=== PATIENT | female | born 1945 | race Caucasian/White ===

== ENCOUNTER → 2016-03-24 | Outpatient (CLI) | payer MEDICARE | LOC: PCVCCLINIC 13:00 | PROVIDERS: ATTEND Internal Medicine Cardiovascular Disease | DX: E78.00 Pure hypercholesterolemia, unspecified (principal); I34.0 Nonrheumatic mitral (valve) insufficiency; I34.1 Nonrheumatic mitral (valve) prolapse | CPT/HCPCS: 80061; 93005; G0463 ==

== ENCOUNTER → 2016-10-06 | Outpatient (CLI) | payer MEDICARE ==
--- NOTE | 2016-10-06 13:10 | PCVCIMAG ---
APPROVED REPORT Study performed: 10/06/2016 09:26:33 EXAM: Comprehensive 2D, Doppler, and color-flow Echocardiogram Patient Location: Echo lab Status: routine Other Information Study Quality: Adequate Indications Mitral Valve Disease Mitral Valve Prolapse 2D Dimensions LVEF(%): 54.26 (>50%) IVSd: 10.25 (7-11mm) LVDd: 39.28 mm PWd: 9.70 (7-11mm) LVDs: 28.42 (25-40mm) Left Atrium: 36.39 (27-40mm) Aortic Root: 31.48 mm LV Single Plane 4CH: 58.01 % LV Single Plane 2CH: 61.33 %Gerard's LVEF: 59.67 % Biplane EF: 60.2 % Volumes Left Atrial Volume (Systole) Single Plane 4CH: 39.18 mLSingle Plane 2CH: 49.79 mL LA ESV Index: 26.00 mL/m2 Aortic Valve AoV Peak Anshul.: 1.28 m/s AO Peak Gr.: 6.56 mmHgLVOT Max P.70 mmHg LVOT Max V: 1.08 m/s Mitral Valve E/A Ratio: 0.8 MV Decel. Time: 282.17 ms MV E Max Anshul.: 0.73 m/s MV A Anshul.: 0.89 m/s IVRT: 128.03 ms Pulmonary Valve PV Peak Anshul.: 0.71 m/sPV Peak Gr.: 2.04 mmHg Pulmonary Vein P Vein S: 0.47 m/sP Vein A: 0.38 m/s P Vein D: 0.57 m/sP Vein A Dur.: 145.3 msec P Vein S/D Ratio: 0.82 Tricuspid Valve TR Peak Anshul.: 2.28 m/s TR Peak Gr.: 20.85 mmHg Left Ventricle The left ventricle is normal size. There is normal LV segmental wall motion. There is normal left ventricular wall thickness. Left ventricular systolic function is normal. The left ventricular ejection fraction is within the normal range. LVEF is 60%. Grade I - abnormal relaxation pattern. Right Ventricle The right ventricle is normal size. The right ventricular systolic function is normal. Atria The left atrium size is normal. The right atrium size is normal. Aortic Valve The aortic valve is normal in structure. Trace regurgitation. There is no aortic valvular stenosis. Mitral Valve Moderate myxomatous mitral valve leaflets. Mild to moderate mitral regurgitation. No evidence of mitral valve stenosis. Moderate bi-leaflet prolapse. Tricuspid Valve The tricuspid valve is normal in structure. Trace to mild tricuspid regurgitation with PAP of 28 mmHg. Pulmonic Valve The pulmonary valve is normal in structure. Mild pulmonic regurgitation. Great Vessels The aortic root is normal in size. IVC is normal in size and collapses with >50% inspiration Pericardium There is no pericardial effusion. <Conclusion> The left ventricle is normal size. There is normal left ventricular wall thickness. LVEF is 60%. Grade I - abnormal relaxation pattern. The right ventricle is normal size. The left atrium size is normal. The aortic valve is normal in structure. Mild to moderate mitral regurgitation. Trace to mild tricuspid regurgitation with PAP of 28 mmHg. There is no pericardial effusion. Moderate myxomatous mitral valve leaflets.
== END | disposition home or self-care (01) ==
LOC: PCVCIMAG 09:35
PROVIDERS: ATTEND Internal Medicine Cardiovascular Disease
DX: I35.1 Nonrheumatic aortic (valve) insufficiency (principal); I34.0 Nonrheumatic mitral (valve) insufficiency; I07.1 Rheumatic tricuspid insufficiency; I37.1 Nonrheumatic pulmonary valve insufficiency; I10 Essential (primary) hypertension; I49.3 Ventricular premature depolarization; E78.00 Pure hypercholesterolemia, unspecified; Z88.0 Allergy status to penicillin; Z88.2 Allergy status to sulfonamides
CPT/HCPCS: 80061; 93005; 93306; G0463

== ENCOUNTER → 2017-11-03 | Outpatient (CLI) | payer MEDICARE ==
--- NOTE | 2017-11-03 17:01 | PCVCIMAG ---
APPROVED REPORT Study performed: 11/03/2017 10:56:12 EXAM: Comprehensive 2D, Doppler, and color-flow Echocardiogram Patient Location: Echo lab Status: routine BSA: 1.81 HR: 80 bpmBP: 100/80 mmHg Rhythm: NSR Other Information Study Quality: Good Risk Factors: Cardiac Risk Factors: Hyperlipidemia, HTN Indications Mitral Valve Prolapse. PVC's. Mitral Regurgitation. 2D Dimensions LVEF(%): 64.27 (>50%) IVSd: 9.04 (7-11mm)LVOT Diam: 19.43 (18-24mm) LVDd: 44.15 mm PWd: 8.57 (7-11mm)Ascending Ao: 34.13 (22-36mm) LVDs: 28.77 (25-40mm) Left Atrium: 32.35 (27-40mm) Aortic Root: 30.03 mm LV Single Plane 4CH: 61.88 % Gerard's LVEF: 64.27 % Volumes Left Atrial Volume (Systole) Single Plane 4CH: 37.45 mLSingle Plane 2CH: 27.77 mL LA ESV Index: 19.00 mL/m2 Aortic Valve AoV Peak Anshul.: 1.34 m/s AO Peak Gr.: 7.23 mmHgLVOT Max P.26 mmHg LVOT Max V: 1.15 m/s NIALL Vmax: 2.53 cm2 Mitral Valve E/A Ratio: 0.7 MV Decel. Time: 270.15 ms MV E Max Anshul.: 0.77 m/s MV A Anshul.: 1.14 m/s TDI E/Lateral E': 11.00E/Medial E': 12.83 Medial E' Anshul.: 0.06 m/s Lateral E' Anshul.: 0.07 m/s Pulmonary Valve PV Peak Gr.: 1.90 mmHg Pulmonary Vein P Vein S: 0.77 m/sP Vein A: 0.38 m/s P Vein D: 0.40 m/sP Vein A Dur.: 55.4 msec P Vein S/D Ratio: 1.92 Tricuspid Valve TR Peak Anshul.: 2.09 m/s TR Peak Gr.: 17.48 mmHg Left Ventricle The left ventricle is normal size. There is normal LV segmental wall motion. There is normal left ventricular wall thickness. Left ventricular systolic function is normal. The left ventricular ejection fraction is within the normal range. LVEF is 60-65%. Grade I - abnormal relaxation pattern. Right Ventricle The right ventricle is normal size. The right ventricular systolic function is normal. Atria The left atrium size is normal. The right atrium size is normal. Aortic Valve The aortic valve is normal in structure. No aortic regurgitation is present. There is no aortic valvular stenosis. Mitral Valve Moderate myxomatus leaflets. Bi-leaflet Prolapse. Mild to moderate mitral regurgitation. No evidence of mitral valve stenosis. Tricuspid Valve The tricuspid valve is normal in structure. Mild tricuspid regurgitation. Pulmonary artery pressure is 25mmhg. Pulmonic Valve The pulmonary valve is normal in structure. There is no pulmonic valvular regurgitation. Great Vessels The aortic root is normal in size. IVC is normal in size and collapses with >50% inspiration Pericardium There is no pericardial effusion. <Conclusion> The left ventricle is normal size. LVEF is 60-65%. Grade I - abnormal relaxation pattern. The right ventricle is normal size. The left atrium size is normal. The aortic valve is normal in structure. Mild to moderate mitral regurgitation. Moderate myxomatus leaflets. Bi-leaflet Prolapse. Mild to moderate mitral regurgitation. No evidence of mitral valve stenosis. Mild tricuspid regurgitation. Pulmonary artery pressure is 25mmhg. The aortic root is normal in size. There is no pericardial effusion.
== END | disposition home or self-care (01) ==
LOC: PCVCIMAG 12:14
PROVIDERS: ATTEND Internal Medicine Cardiovascular Disease
DX: I34.1 Nonrheumatic mitral (valve) prolapse (principal); I34.0 Nonrheumatic mitral (valve) insufficiency; E78.00 Pure hypercholesterolemia, unspecified; I10 Essential (primary) hypertension; K21.9 Gastro-esophageal reflux disease without esophagitis; Z79.82 Long term (current) use of aspirin
CPT/HCPCS: 93005; 93306

== ENCOUNTER → 2018-09-22 | Outpatient (CLI) | payer MEDICARE ==
--- NOTE | 2018-09-22 14:54 | PCVCIMAG ---
APPROVED REPORT Study performed: 09/22/2018 13:01:40 EXAM: Comprehensive 2D, Doppler, and color-flow Echocardiogram Patient Location: Echo lab Status: routine BSA: 1.79 HR: 77 bpmBP: 100/60 mmHg Rhythm: NSR Other Information Study Quality: Good Risk Factors: Cardiac Risk Factors: HTN, Hyperlipidemia Indications Mitral Valve Prolapse Mitral regurgitation. 2D Dimensions IVSd: 9.64 (7-11mm)LVOT Diam: 18.94 (18-24mm) LVDd: 37.44 mm PWd: 10.80 (7-11mm)Ascending Ao: 39.59 (22-36mm) LVDs: 22.15 (25-40mm) Left Atrium: 36.30 (27-40mm) Aortic Root: 30.12 mm LV Single Plane 4CH: 59.27 % LV Single Plane 2CH: 60.62 % Biplane EF: 61.0 % Volumes Left Atrial Volume (Systole) Single Plane 4CH: 29.09 mLSingle Plane 2CH: 35.85 mL LA ESV Index: 19.00 mL/m2 Aortic Valve AoV Peak Anshul.: 1.32 m/s AO Peak Gr.: 6.93 mmHgLVOT Max P.25 mmHg LVOT Max V: 0.90 m/s NIALL Vmax: 1.93 cm2 TDI Medial E' Anshul.: 0.05 m/s Lateral E' Anshul.: 0.07 m/s Pulmonary Vein P Vein S: 0.59 m/sP Vein A: 0.38 m/s P Vein D: 0.40 m/sP Vein A Dur.: 65.7 msec P Vein S/D Ratio: 1.48 Tricuspid Valve TR Peak Anshul.: 2.01 m/s TR Peak Gr.: 16.17 mmHg Left Ventricle The left ventricle is normal size. There is normal LV segmental wall motion. There is normal left ventricular wall thickness. Left ventricular systolic function is normal. The left ventricular ejection fraction is within the normal range. LVEF is 60-65%. Grade I - abnormal relaxation pattern. Right Ventricle The right ventricle is normal size. The right ventricular systolic function is normal. Atria The left atrium size is normal. The right atrium size is normal. Aortic Valve The aortic valve is normal in structure. No aortic regurgitation is present. There is no aortic valvular stenosis. Mitral Valve Moderate myxomatous leaflets. Mild to moderate mitral regurgitation. No evidence of mitral valve stenosis. Tricuspid Valve The tricuspid valve is normal in structure. Trace tricuspid regurgitation. Pulmonary artery pressure is 23mmHg. Pulmonic Valve The pulmonary valve is normal in structure. There is no pulmonic valvular regurgitation. Great Vessels The aortic root is normal in size. IVC is normal in size and collapses >50% with inspiration. Pericardium There is no pericardial effusion. <Conclusion> The left ventricle is normal size. LVEF is 60-65%. Grade I - abnormal relaxation pattern. The right ventricle is normal size. The left atrium size is normal. The aortic valve is normal in structure. There is no aortic valvular stenosis. Moderate myxomatous leaflets. Mild to moderate mitral regurgitation. Trace tricuspid regurgitation. Pulmonary artery pressure is 23mmHg. The aortic root is normal in size. There is no pericardial effusion.
== END | disposition home or self-care (01) ==
LOC: PCVCIMAG 12:41
PROVIDERS: ATTEND Internal Medicine Cardiovascular Disease
DX: I34.1 Nonrheumatic mitral (valve) prolapse (principal); I34.0 Nonrheumatic mitral (valve) insufficiency; E78.00 Pure hypercholesterolemia, unspecified; I10 Essential (primary) hypertension; R42 Dizziness and giddiness; R55 Syncope and collapse; R06.02 Shortness of breath; Z79.82 Long term (current) use of aspirin
CPT/HCPCS: 36415; 80061; 93005; 93306; G0463

== ENCOUNTER → 2018-10-10 | Outpatient (CLI) | payer MEDICARE ==
--- NOTE | 2018-10-10 14:38 | PCVCIMAG ---
APPROVED REPORT Study performed: 10/10/2018 11:27:22 Exam: Stress Echocardiogram Indication: Mitral Valve Disease, Dyspnea, Syncope Patient Location: Echo lab Stress Nurse: Vandana Pepper RN Status: routine Ht: 5 ft 6 in HR: 99 bpm BP: 130/80 mmHg Rhythm: NSR Procedure The patient underwent an Exercise Stress Test using the Darryn Protocol. Blood pressure, heart rate, and EKG were monitored. An Echocardiogram was performed by care technician in four stages in quad fashion. At peak stress, four selected images were obtained and placed side by side with resting images for comparison. Stress Test Details Stress Test: Exercise stress testing was performed using a Darryn protocol. HR Resting HR: 99 bpmMax Heart Rate (APMHR): 147 bpm Max HR Achieved: 150 bpmTarget HR (85% APMHR): 124 bpm % of APMHR: 102 Recovery HR: 103 bpm HR response to stress: Normal HR response to stress BP Resting BP: 130/80 mmHg Max BP: 156/78 mmHg Recovery BP: 136/78 mmHg BP response to stress: Normal blood pressure response to stress. ECG Resting ECG: Sinus Rhythm Stress ECG: Sinus Rhythm Recovery ECG: Sinus Rhythm Clinical Reason for Termination: Maximal effort Exercise duration: 8 min sec Highest Stage Achieved: Stage 3: 3.4 mph at 14% grade. Exercise capacity: 10.10 METs Overall Exercise Capacity for Age: Good Pre-Stress Echo The resting Echocardiogram showed normal left ventricular contractility with an estimated Ejection Fraction of about 55-60%. Normal wall motion in all segments on baseline images. Post-Stress Echo The stress Echocardiogram showed normal left ventricular contractility with an estimated Ejection Fraction of about 60-65%. Normal augmentation of wall motion in all segments on post stress images. Clinical No clinical or ECG evidence for ischemia. Conclusion Clinical Response: Non-ischemic Exercise Capacity: Average Stress ECG Response: Non-ischemic Stress Echo Images: Non-ischemic The left ventricle is normal in size and wall thickness in both the rest and stress images. Other Information Study Quality: Good <Conclusion> The left ventricle is normal in size and wall thickness in both the rest and stress images.
== END ==
LOC: PCVCIMAG 11:22
PROVIDERS: ATTEND Internal Medicine Cardiovascular Disease
DX: I34.1 Nonrheumatic mitral (valve) prolapse (principal); I34.0 Nonrheumatic mitral (valve) insufficiency; G43.909 Migraine, unspecified, not intractable, without status migrainosus; R42 Dizziness and giddiness
CPT/HCPCS: 93325; 93351